=== PATIENT | female | born 1980 | race Caucasian/White ===

== ENCOUNTER → 2017-02-08 | Outpatient (CLI) | payer OTHER ==
[~2017-02-08] MED LIST: BENADRYL 25MG C25 MG PO; TOPAMAX100 MG PO
--- NOTE | 2017-02-10 16:16 | RADIOLOGY REPORT PS360 ---
DIG MAMM-DX SAMIA W/AVWS W/CAD, US BREAST-LT COMPLETE W/AXILLA Ordering Physician: CHARLIE SWEENEY Patient Age: 36 years Female COMPARISON: Left mammogram studies from October 2016, June as well as ultrasound exam noted in text INDICATION: 2 palpable areas left breast. Upper outer quadrant left breast a medial upper left breast. Also follow-up of Asymmetric density left breast seen on recent October mammogram . DIAGNOSTIC BILATERAL MAMMOGRAM with spot views LEFT breast Fairly dense breasts decreases to the mammography. LEFT BREAST Just lateral to the nipple there is a metallic marker associated with a small nodule which likely reflects the previously biopsied fibroadenoma clip. This measures up to 12 mm on plain film but no significant change on mammography. A skin marker placed over thePalpable area upper outer quadrant left breast towards 2 o'clock position. This area appears similar to previous studies dating back to at least 2016. No suspicious findings here as seen on today's ultrasound only moderately dense breast tissue... A second triangle skin marker is also placed at the superior medial left breast approximately 12:00. No unique features are identified here. Ongoing follow-up suggested Vague Area on previous study noted at deep axillary left breast appears stable to less evident today and can be followed Area of density inferior left breast towards 6:00 noted on recent study appears stable as well. . There are no new features of significant concern on today's left mammogram images. RIGHT BREAST:. Slightly more generous soft tissue density at the inferior right breast on today's study versus [facility] 2015 exam most likely most likely stable and related to technique after reviewing,, all images from that facility. Cc view appear stable as well . However On final review & close inspection note 8 mm x 6 mm nodular density deep margin right breast MLO view. Most likely a lymph node which was not included on previous study would benefit from 6 month follow-up as well ULTRASOUND LEFT BREAST including axillary survey COMPARISON : Today's left breast ultrasound a left breast ultrasound studies from October 08, 2016, November & April 2015 left breast ultrasound studies; as well as today's mammogram FINDINGS no new areas of concern 12:00. Elongated series small cyst which align in a row and span up to 17-mm length x 3 mm AP. Can be followed . 1:00. 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 This measures 11 mm length x 6 mm AP length. Likely palpable just beneath the skin at. 6:00 elongated area which appears to be likely a small cluster of cyst apocrine cysts. Can be followed this area measures up to 1.1 cm length x 0.6 cm on today's study. Margins appear more satisfactory anteriorly than on previous exam IMPRESSION: 1. Dense inhomogeneous breast bilaterally decreased sensitivity of mammography 2. LEFT BREAST: ... 2 palpable areas left breast.- Show no new or suspicious findings on ultrasound & with no suspicious findings mammography. Ongoing Follow-up suggested in this dense breast. Recommend 6-8 month follow-up mammogram & ultrasound LEFT breast for ongoing evaluation of these palpable regions 3. RIGHT BREAST.: On final review 8 mm x 6 mm most likely lymph node seen at very deep margin of MLO view. This feature along with very slightly more generous I believe glandular density inferior right breast noted today. These minor features would 6-8 month follow-up right mammogram to confirm stability when the patient returns as well.. BI-RADS CATEGORY: 3_Probably Benign-Short Term F/U RECOMMENDED FOLLOWUP: 6M-8 MONTH FOLLOW-UP Bilateral follow-up mammogram 6 months. Along with left breast ultrasound (A letter has been sent to the patient regarding results of the study.)
== END ==
LOC: RAD 12:57
DX: Z12.31 Encounter for screening mammogram for malignant neoplasm of breast (principal)
CPT/HCPCS: G0204